=== PATIENT | female | born 1970 | race Caucasian/White ===

== ENCOUNTER 2016-06-06 14:40 | Emergency (ER) | payer OTHER ==
--- NOTE | 2016-06-06 15:29 | ED ---
General Adult HPI - General Chief complaint: Arrhythmia/Palpitations Stated complaint: heart racing, chest tightness Time Seen by Provider: 06/06/16 15:21 Source: patient, RN notes reviewed, old records reviewed Mode of arrival: ambulatory Limitations: no limitations - History of Present Illness Initial comments: This is a 45-year-old female ER for evaluation. The patient is reevaluation of anxiety palpitations. Patient has history of PVCs, mild history of anxiety takes no medication, states he stay with parents and began to feel her heart beating in her chest, that her heart was racing. Patient denies chest pain or shortness of breath no recent medication changes no drugs or alcohol. No recent nausea vomiting or diarrheal illnesses - Related Data Home Medications Medication Instructions Recorded Confirmed Losartan Potassium 100 mg PO HS 06/06/16 06/06/16 Pantoprazole Sodium [Protonix] 40 mg PO DAILY 06/06/16 06/06/16 Spironolactone [Aldactone] 25 mg PO HS 06/06/16 06/06/16 Allergies Allergy/AdvReac Type Severity Reaction Status Date / Time cephalexin [From Keflex] Allergy Anaphylaxis Verified 06/06/16 15:53 Penicillins Allergy Unknown Verified 06/06/16 15:53 Review of Systems ROS Statement: Those systems with pertinent positive or pertinent negative responses have been documented in the HPI. ROS Other: All systems not noted in ROS Statement are negative. Past Medical History Past Medical History: Hypertension Additional Past Medical History / Comment(s): pvc general anxiety disorder ibs pcos ociptal neuralgia benign essential tremors History of Any Multi-Drug Resistant Organisms: None Reported Past Surgical History: Section, Cholecystectomy, Orthopedic Surgery Additional Past Surgical History / Comment(s): l knee x2 shoulder ovarian cyst breast reduction Past Psychological History: Anxiety Smoking Status: Never smoker Past Alcohol Use History: None Reported Past Drug Use History: None Reported General Exam Limitations: no limitations General appearance: alert, in no apparent distress, anxious Head exam: Present: atraumatic, normocephalic, normal inspection Eye exam: Present: normal appearance, PERRL, EOMI. Absent: scleral icterus, conjunctival injection, periorbital swelling ENT exam: Present: normal exam, mucous membranes moist Neck exam: Present: normal inspection. Absent: tenderness, meningismus, lymphadenopathy Respiratory exam: Present: normal lung sounds bilaterally. Absent: respiratory distress, wheezes, rales, rhonchi, stridor Cardiovascular Exam: Present: regular rate, normal rhythm, normal heart sounds. Absent: systolic murmur, diastolic murmur, rubs, gallop, clicks GI/Abdominal exam: Present: soft, normal bowel sounds. Absent: distended, tenderness, guarding, rebound, rigid Extremities exam: Present: normal inspection, full ROM, normal capillary refill. Absent: tenderness, pedal edema, joint swelling, calf tenderness Back exam: Present: normal inspection Neurological exam: Present: alert, oriented X3, CN II-XII intact Psychiatric exam: Present: normal affect, normal mood Skin exam: Present: warm, dry, intact, normal color. Absent: rash Course Vital Signs 06/06/16 06/06/16 06/06/16 14:49 15:25 15:30 Temperature 97.6 F Pulse Rate 82 86 Pulse Rate [ 92 Bilateral Radial] Respiratory 18 18 Rate Blood Pressure 137/76 147/84 O2 Sat by Pulse 99 98 Oximetry 06/06/16 16:20 Temperature Pulse Rate 85 Pulse Rate [ Bilateral Radial] Respiratory 16 Rate Blood Pressure 124/67 O2 Sat by Pulse 97 Oximetry - Reevaluation(s) Reevaluation #1: 06/06/16 16:30 Patient feeling better with anxiety medication Medical Decision Making - Medical Decision Making 45-year-old ER for evaluation. Patient is an ER for evaluation of heart palpitations and heart beating and chest, history of PVCs, no medication for these issues. Patient is is not having any PVCs at this time on the monitor, EKG is normal labs is normal and patient can be discharged home - Lab Data Result diagrams: 06/06/16 15:20 06/06/16 15:20 Lab Results 06/06/16 06/06/16 06/06/16 Range/Units 15:20 15:20 15:20 WBC 8.1 (3.8-10.6) k/uL RBC 5.14 (3.80-5.40) m/uL Hgb 15.6 (11.4-16.0) gm/dL Hct 44.2 (34.0-46.0) % MCV 86.0 (80.0-100.0) fL MCH 30.5 (25.0-35.0) pg MCHC 35.4 (31.0-37.0) g/dL RDW 13.5 (11.5-15.5) % Plt Count 258 (150-450) k/uL Neutrophils % 62 % Lymphocytes % 31 % Monocytes % 4 % Eosinophils % 1 % Basophils % 2 % Neutrophils # 5.0 (1.3-7.7) k/uL Lymphocytes # 2.5 (1.0-4.8) k/uL Monocytes # 0.3 (0-1.0) k/uL Eosinophils # 0.1 (0-0.7) k/uL Basophils # 0.1 (0-0.2) k/uL PT (9.0-12.0) sec INR (<1.1) APTT (22.0-30.0) sec Sodium 144 (137-145) mmol/L Potassium 4.4 (3.5-5.1) mmol/L Chloride 109 H (98-107) mmol/L Carbon Dioxide 21 L (22-30) mmol/L Anion Gap 14 mmol/L BUN 12 (7-17) mg/dL Creatinine 0.90 (0.52-1.04) mg/dL Est GFR (MDRD) Af Amer >60 (>60 ml/min/1.73 sqM) Est GFR (MDRD) Non-Af >60 (>60 ml/min/1.73 sqM) Glucose 103 H (74-99) mg/dL Calcium 9.7 (8.4-10.2) mg/dL Magnesium 1.7 (1.6-2.3) mg/dL Total Bilirubin 1.0 (0.2-1.3) mg/dL AST 19 (14-36) U/L ALT 41 (9-52) U/L Alkaline Phosphatase 82 (38-126) U/L Total Creatine Kinase 98 (30-135) U/L Total Protein 7.0 (6.3-8.2) g/dL Albumin 4.2 (3.5-5.0) g/dL 06/06/16 Range/Units 15:20 WBC (3.8-10.6) k/uL RBC (3.80-5.40) m/uL Hgb (11.4-16.0) gm/dL Hct (34.0-46.0) % MCV (80.0-100.0) fL MCH (25.0-35.0) pg MCHC (31.0-37.0) g/dL RDW (11.5-15.5) % Plt Count (150-450) k/uL Neutrophils % % Lymphocytes % % Monocytes % % Eosinophils % % Basophils % % Neutrophils # (1.3-7.7) k/uL Lymphocytes # (1.0-4.8) k/uL Monocytes # (0-1.0) k/uL Eosinophils # (0-0.7) k/uL Basophils # (0-0.2) k/uL PT 11.3 (9.0-12.0) sec INR 1.1 (<1.1) APTT 26.5 (22.0-30.0) sec Sodium (137-145) mmol/L Potassium (3.5-5.1) mmol/L Chloride (98-107) mmol/L Carbon Dioxide (22-30) mmol/L Anion Gap mmol/L BUN (7-17) mg/dL Creatinine (0.52-1.04) mg/dL Est GFR (MDRD) Af Amer (>60 ml/min/1.73 sqM) Est GFR (MDRD) Non-Af (>60 ml/min/1.73 sqM) Glucose (74-99) mg/dL Calcium (8.4-10.2) mg/dL Magnesium (1.6-2.3) mg/dL Total Bilirubin (0.2-1.3) mg/dL AST (14-36) U/L ALT (9-52) U/L Alkaline Phosphatase (38-126) U/L Total Creatine Kinase (30-135) U/L Total Protein (6.3-8.2) g/dL Albumin (3.5-5.0) g/dL Disposition Clinical Impression: Anxiety, Palpitation Disposition: HOME SELF-CARE Instructions: Palpitations (ED), Anxiety (ED) Referrals: Loraine Santiago MD [Primary Care Provider] - 1-2 days
[2016-06-06 15:56] LABS: Basophils # (A) 0.1 k/uL (0-0.2); Basophils % (A) 2 %; CH 31.3; CHCM 36.5; Eosinophils # (A) 0.1 k/uL (0-0.7); Eosinophils % (A) 1 %; HCT 44.2 % (34.0-46.0); HDW 2.85; HGB 15.6 gm/dL (11.4-16.0); Luc # (Auto) 0.15; Luc % (Auto) 2; Lymphocytes # (A) 2.5 k/uL (1.0-4.8); Lymphocytes % (A) 31 %; MCH 30.5 pg (25.0-35.0); MCHC 35.4 g/dL (31.0-37.0); Monocytes # (A) 0.3 k/uL (0-1.0); Monocytes % (A) 4 %; Neutrophils % (A) 62 %; RBC 5.14 m/uL (3.80-5.40); RDW 13.5 % (11.5-15.5); WBC 8.1 k/uL (3.8-10.6); WBC (Perox) 8.11
[2016-06-06 16:07] LABS: INR 1.1 (<1.1); Partial Thromboplastin Time 26.5 sec (22.0-30.0); Prothrombin Time 11.3 sec (9.0-12.0)
[2016-06-06 16:08] LABS: ALT 41 U/L (9-52); AST 19 U/L (14-36); Alkaline Phosphatase 82 U/L (38-126); Anion Gap 14 mmol/L; Blood Urea Nitrogen 12 mg/dL (7-17); Calcium 9.7 mg/dL (8.4-10.2); Carbon Dioxide 21 mmol/L (22-30); Chloride 109 mmol/L (98-107); Glucose 103 mg/dL (74-99); Magnesium 1.7 mg/dL (1.6-2.3); Non-African American GFR(MDRD) >60 (>60 ml/min/1.73 sqM); Potassium 4.4 mmol/L (3.5-5.1); Sodium 144 mmol/L (137-145)
[2016-06-06] MEDS ORDERED: LORazepam 2 MG/ML SYRINGE IV STA (16:10)
[2016-06-06 16:17] LABS: Creatine Kinase 98 U/L (30-135)
[2016-06-06 16:30] LABS: Creatine Kinase MB 0.7 ng/mL (0.0-2.4); Troponin I <0.012 ng/mL (0.000-0.034)
--- NOTE | 2016-06-06 16:45 | XR ---
EXAMINATION TYPE: XR chest 2V DATE OF EXAM: 06/06/2016 4:42 PM COMPARISON: NONE HISTORY: Chest pain TECHNIQUE: Frontal and lateral views of the chest are obtained. FINDINGS: There is no focal air space opacity, pleural effusion, or pneumothorax seen. The cardiac silhouette size is within normal limits. The osseous structures are intact. IMPRESSION: No acute cardiopulmonary process.
[2016-06-06 17:32] VITALS: RESP 14
[2016-06-06 19:03] VITALS: BP 132/82; PULSE 79; TEMP 97.3
== END 2016-06-06 19:15 | disposition home or self-care (01) ==
LOC: EC 14:40
DX: F41.9 Anxiety disorder, unspecified (principal); I10 Essential (primary) hypertension; Z79.899 Other long term (current) drug therapy; Z88.1 Allergy status to other antibiotic agents; Z88.0 Allergy status to penicillin
CPT/HCPCS: 99285 ×2; 96374 ×2; 36415; 93005; 80053; 82550; 82553; 83735; 84443; 84484; 85025; 85610; 85730; 71020; J2060